=== PATIENT | female | born 1990 | race African-American/Black ===

== ENCOUNTER 2016-12-26 22:33 | Emergency (ER) | payer OTHER ==
[~2016-12-26] VITALS: Ht 165.1 cm; Wt 93.0 kg
[~2016-12-26 22:33] MED LIST: NKM
[2016-12-26 22:53] VITALS: BP 110/74
[2016-12-26 23:16] LABS: KETONES,URINE 1+ (NEGATIVE); LEUKOCYTE ESTERASE ,URINE 1+ (NEGATIVE); NITRITE,URINE NEGATIVE (NEGATIVE); PH,URINE 6 (4.5-8.0); PROTEIN,URINE NEGATIVE (NEGATIVE); UROBILINOGEN,URINE 1 MG/DL (0.0-1.0)
[2016-12-26 23:17] LABS: APPEARANCE,URINE SLIGHTLY CLOUDY
[2016-12-26 23:20] VITALS: BP 110/74
[2016-12-26 23:20] LABS: BACTERIA,URINE MODERATE /HPF; RBC,URINE 0-2 /HPF (0 - 2); SQUAMOUS EPITHELIAL CELL,UR MANY /LPF (NONE/OCC)
[2016-12-26 23:21] LABS: ICTOTEST NEGATIVE
--- NOTE | 2016-12-27 06:03 | Emergency Room Report ---
History of Present Illness General Chief Complaint: General Complaint Source: Patient Present Illness HPI Patient present with her for complaints of possible STD Patient is otherwise asymptomatic Denies any fevers or chills Denies any dysuria frequency Denies any back or flank pain Denies any pelvic discomfort or vaginal discharge Allergies: Coded Allergies: No Known Allergies (Unverified , 11/06/15) Patient History Past Medical History: see triage record Pertinent Family History: none Last Menstrual Period: 12/03 Now: Yes : 1 Para: 1 Reviewed Nursing Documentation: PMH: Agreed, PSxH: Agreed Nursing Documentation-PMH Past Medical History: No Stated History Review of Systems All Other Systems: negative except mentioned in HPI Physical Exam Vital Signs Date Time Temp Pulse Resp B/P Pulse Ox O2 Delivery O2 Flow Rate FiO2 12/26/16 22:47 98.2 72 15 110/74 96 Room Air Sp02 EP Interpretation: reviewed, normal General Appearance: well appearing, no apparent distress Head: normocephalic, atraumatic Eyes: bilateral eye EOMI, bilateral eye PERRL ENT: hearing grossly normal, normal pharynx, TMs + canals normal, uvula midline Neck: full range of motion, supple, no meningismus, no bony tend Respiratory: lungs clear, normal breath sounds, no rhonchi, no respiratory distress, no retraction, no accessory muscle use Cardiovascular #1: normal peripheral pulses, regular rate, rhythm, no edema, no gallop, no JVD, no murmur Gastrointestinal: normal bowel sounds, non tender, soft, no mass, no organomegaly, non-distended, no guarding, no hernia, no pulsatile mass, no rebound Genitourinary: no CVA tenderness Musculoskeletal: normal inspection Neurologic: oriented x3, responsive, 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 professor III-XII nml as tested, motor strength/ tone normal, sensory intact Psychiatric: mood/affect normal Skin: normal color, no rash, warm/dry, palpation normal Lymphatic: normal inspection, no adenopathy Medical Decision Making Diagnostic Impression: Primary Impression: medical screening evaluation ER Course Patient had a fairly benign medical evaluation At this time is asymptomatic Patient's partner is also asymptomatic and was initially seen only for the dermatitis on the penis which does not appear to be in line with the STD They are encouraged her to follow up with outpatient clinic Last Vital Signs Date Time Temp Pulse Resp B/P Pulse Ox O2 Delivery O2 Flow Rate FiO2 12/26/16 23:20 98.2 15 110/74 96 Room Air 12/26/16 22:53 74 Status: unchanged Disposition: HOME, SELF-CARE Condition: Stable Referrals: [employer] [facility],REFERSHAE (PCP) Patient Instructions: Medical Screening Exam Additional Instructions: Patient is provided with the discharge instructions notified to follow up with primary doctor in the next 2-3 days otherwise return to the er with any worsening symptoms. Please note that this report is being documented using [employer] technology. This can lead to erroneous entry secondary to incorrect interpretation by the dictating instrument. LEBRON OWENS D.O. Dec 27, 2016 06:03
== END 2016-12-26 23:20 | disposition home or self-care (01) ==
LOC: EMR 23:12
DX: Z20.2 Contact with and (suspected) exposure to infections with a predominantly sexual mode of transmission (principal)
CPT/HCPCS: 81003; 81025; 87086; 99283